=== PATIENT | male | born 1965 | race Caucasian/White ===

== ENCOUNTER 2020-04-18 09:02 | Day surgery (SDC) | payer OTHER, SELFPAY ==
[2020-04-12 14:06] VITALS: BMI 26.9
--- NOTE | 2020-04-17 08:38 | P.CONAN_ITS ---
Documented by User: Joie Amador 04/17/20 08:40 HPI - Anesthesia Eval Consult details Narrative: 54yo M for Colonoscopy [facility] Past Medical History Medical History Anxiety and depression Arthritis Back pain Elevated cholesterol History of cellulitis HTN (hypertension) Hx of heartburn Hx of sciatica Family History Family History Father No problems noted. Mother Chronic mental illness Surgical History Surgical History Hx of lumbar discectomy Social History Social History (Updated 04/18/20 @ 10:16 by Shelia Gross) Alcohol intake: former Smoking Status: Current every day smoker Cigarettes Per Day: 10 Years Smoked: 35 Smoked in Last 30 Days: Yes Use of substances other than those prescribed or required for medical reasons: No Substance Use Type: Former Substance User Advance Directives Information Provided: No Recently lost weight without trying: No Meds Allergies Allergy/AdvReac Type Severity Reaction Status Date / Time No Known Allergies Allergy Verified 04/18/20 09:24 [No Known Allergies*] Home Medications Medication Instructions Recorded Confirmed Type acetaminophen [Tylenol Extra 1,000 mg PO Q6H PRN 04/12/20 04/12/20 History Strength] famotidine [Pepcid AC] 20 mg PO DAILY PRN 04/12/20 04/12/20 History ibuprofen 400 mg PO Q6H PRN 04/12/20 04/12/20 History Exam Exam Date and Time: April 17, 2020 0838 Height,Weight and Vital Signs: Height 6 ft 5 in Weight 102.965 kg Assessment and Plan Assessment Anesthesia Assessment: Chart Reviewed Documented by User: Shelia Gross 04/18/20 10:20 [facility] Past Medical History Medical History Anxiety and depression Arthritis Back pain Elevated cholesterol History of cellulitis HTN (hypertension) Hx of heartburn Hx of sciatica Family History Family History Father No problems noted. Mother Chronic mental illness Family history of problems with anesthesia: No Surgical History Surgical History Hx of lumbar discectomy History of Problems with Anesthesia: No Social History Social History (Updated 04/18/20 @ 10:16 by Shelia Gross) Alcohol intake: former Smoking Status: Current every day smoker Cigarettes Per Day: 10 Years Smoked: 35 Smoked in Last 30 Days: Yes Use of substances other than those prescribed or required for medical reasons: No Substance Use Type: Former Substance User Advance Directives Information Provided: No Recently lost weight without trying: No Meds Allergies Allergy/AdvReac Type Severity Reaction Status Date / Time No Known Allergies Allergy Verified 04/18/20 09:24 [No Known Allergies*] Home Medications Medication Instructions Recorded Confirmed Type acetaminophen [Tylenol Extra 1,000 mg PO Q6H PRN 04/12/20 04/12/20 History Strength] famotidine [Pepcid AC] 20 mg PO DAILY PRN 04/12/20 04/12/20 History ibuprofen 400 mg PO Q6H PRN 04/12/20 04/12/20 History Exam Height,Weight and Vital Signs: Vital Signs Temp Pulse Resp BP Pulse Ox 04/18/20 09:39 96.9 F 72 18 152/100 H 98 Airway Mallampati Class: III TM Dist: >3cm Neck ROM: Full Loose/Missing/Broken Teeth: Yes (Many loose) Heart: RRR Lungs: CTAB Assessment and Plan Assessment Anesthesia Assessment: Anesthesia Plan Discussed and Chart Reviewed Final Anesthetic Review NPO: Yes ASA Class: II Final Preanesthetic Review: No Changes in Pt Med Stat, Meds/Allgs Chart Reviewed, Consent Obtained/Reviewed and Anes Risks/Benef Reviewed Patient Risk: Low Procedure Risk: Low Assessment/Block/Sedation in SS: Assess/Block/Sedation-SS Anesthetic Plan Anesthetic Plan: MAC: Disposition: Standard PACU
[2020-04-18 09:39] VITALS: BP 152/100; PULSE 72; RESP 18; TEMP 36.1; O2SAT 98
--- NOTE | 2020-04-18 10:12 | MHC.SHP ---
Pre-Procedural Eval Section A The patient is an INPATIENT: No Changes since office visit: No Cold of Flu in the past 2 weeks, No New Medical Problems, No Changes in Medication and No Patient answered all questions The History & Physical has been completed within 30 days and I have reviewed it.: Yes Section B Chief Complaint: screening Allergies: Allergies Allergy/AdvReac Type Severity Reaction Status Date / Time No Known Allergies Allergy Verified 04/18/20 09:24 [No Known Allergies*] Plan I have reviewed the history and physical and performed a pertinent physical examination on my patient. No changes have occurred unless specified.
[2020-04-18] MEDS: Lactated Ringers 1,000 ML 100 ML IVCONT (10:13)
[2020-04-18 10:47] VITALS: BP 140/93; PULSE 55; RESP 12; TEMP 36.2; O2SAT 95
--- NOTE | 2020-04-18 10:54 | PM.OP ---
Brief Operative Note Date of Service: 04/18/20 Pre-op diagnosis: screening Post-op diagnosis: same (normal exam) Procedure: colonoscopy Surgeon: Nitin Seymour Anesthesia: MAC Estimated blood loss (mL): 0 Pathology: none sent Condition: stable Disposition: PACU
[2020-04-18 11:02] VITALS: BP 140/84; PULSE 60; RESP 18; O2SAT 97
--- NOTE | 2020-04-18 11:11 | OP_ITS ---
SURGEON: Nitin Seymuor MD INDICATIONS: Colon cancer screening. PREOPERATIVE DIAGNOSIS: POSTOPERATIVE DIAGNOSIS: PROCEDURE PERFORMED: Colonoscopy to the terminal ileum. ESTIMATED BLOOD LOSS: COMPLICATIONS: ANESTHESIA: ASSISTANTS: SPECIMENS: MEDICATIONS: Monitored anesthesia care. DESCRIPTION OF PROCEDURE: History and physical performed. The risks and benefits of the procedure were explained to the patient. Informed consent was obtained. The patient was placed in the left lateral decubitus position. A digital rectal exam was performed and was found to be normal. The Olympus pediatric video colonoscope was introduced into the rectum and advanced to the cecum without difficulty. The cecum was identified by transillumination, palpation, and identification of ileocecal valve. Examination was performed and the scope was removed. He tolerated the procedure well and was taken to recovery area in stable condition. FINDINGS: The terminal ileum was normal. The visualized colonic mucosa was within normal limits without evidence of masses or ulcers. No polyps were identified. The quality of the prep was good. Retroflexed examination was normal. IMPRESSION: Normal colonoscopy. RECOMMENDATIONS: 1. Follow up as needed. 2. Repeat colonoscopy is recommended in 10 years for average risk individuals. MD JAK Campoverde/HE / [id number]
--- NOTE | 2020-04-18 12:29 | HO.POSTANES ---
Post Anesthesia Evaluation Post Anesthesia Evaluation Vital Signs: Vital Signs Temp Pulse Resp BP Pulse Ox 04/18/20 11:02 60 18 140/84 H 97 04/18/20 10:47 97.2 F 55 12 140/93 H 95 04/18/20 09:39 96.9 F 72 18 152/100 H 98 Anesthesia: Monitored Mental Status: Awake Pain Control: Satisfactory Nausea/Vomiting: None Hydration: Adequate Anesthesia-Related Issues: No Anes. Related Issues
== END 2020-04-18 11:45 | disposition home or self-care (01) ==
PROVIDERS: Visit Provider Internal Medicine Gastroenterology
PROC: 0DJD8ZZ Inspection of Lower Intestinal Tract, Via Natural or Artificial Opening Endoscopic (ICD-10-PCS; CPT 45378; principal; 2020-04-18 10:40)
DX: Z12.11 Encounter for screening for malignant neoplasm of colon (principal); I10 Essential (primary) hypertension; R12 Heartburn; Z79.899 Other long term (current) drug therapy
CPT/HCPCS: 45378

== ENCOUNTER → 2022-01-24 06:15 | Outpatient (REF) | payer OTHER, SELFPAY ==
--- NOTE | 2022-01-24 06:29 | ECG_ITS ---
Test Reason : htn Blood Pressure : / mmHG Vent. Rate : 063 BPM Atrial Rate : 063 BPM P-R Int : 160 ms QRS Dur : 094 ms QT Int : 436 ms P-R-T Axes : 061 010 050 degrees QTc Int : 446 ms Normal sinus rhythm Intra-ventricular conduction delay Otherwise normal ECG When compared with ECG of 13-SEP-2016 11:13, No significant change was found Referred By: Lima Martini Electronically Signed By:JOHNNIE KERN MD
[2022-01-24 07:49] LABS: Alanine Aminotransferase 74 U/L (0-40); Albumin Level 4.5 g/dL (3.5-5.0); Alkaline Phosphatase 81 U/L (39-117); Anion Gap 16 (12-20); Aspartate Amino Transferase 51 U/L (5-37); Bilirubin Total 0.6 mg/dL (0.0-1.0); Blood Urea Nitrogen 14 mg/dL (9-16); Calcium 9.2 mg/dL (8.4-10.2); Carbon Dioxide 25 mmol/L (22-29); Chloride 105 mmol/L (96-108); Cholesterol 189 mg/dL; Estimated Glomerular Filt Rate > 60; Glucose Fasting 105 mg/dL (60-99); HDL Cholesterol 41 mg/dL; LDL Cholesterol Calculated 130 mg/dl; Potassium 4.7 mmol/L (3.3-5.1); Sodium 141 mmol/L (135-145); Total Protein 7.3 g/dL (6.5-8.0); Triglycerides 94 mg/dL
== END ==
LOC: HO.CARD 06:15
PROVIDERS: PCP Internal Medicine; Visit Provider Internal Medicine
DX: Z00.00 Encounter for general adult medical examination without abnormal findings (principal); I10 Essential (primary) hypertension; E78.5 Hyperlipidemia, unspecified
CPT/HCPCS: 36415; 80053; 80061; 93005

== ENCOUNTER 2022-06-14 07:35 | Outpatient (REF) | payer OTHER, SELFPAY ==
--- NOTE | ~2022-06-14 | US_ITS ---
EXAMINATION: US ABDOMEN LIMITED CLINICAL INFORMATION: Umbilical hernia without obstruction or gangrene. COMPARISON: CT of the abdomen and pelvis 12/28/2011. TECHNIQUE: Real-time imaging of the midline epigastric and umbilical areas. FINDINGS: In an area indicated by the patient, there is some mild forward bulging without a hernia with separation of the rectus muscles by about 1.9 cm, consistent with diastasis recti. At the umbilicus, there is a small periumbilical hernia seen containing only fat. The gap in the fascia measures 1.6 cm. US/US abdomen limited IMPRESSION: Diastases recti with small periumbilical hernia containing only fat. Identical findings are seen on the 12/28/2011 CT scan.
== END 2022-06-14 07:36 | disposition home or self-care (01) ==
LOC: HO.US 07:35
PROVIDERS: PCP Internal Medicine; Visit Provider Internal Medicine
DX: K42.9 Umbilical hernia without obstruction or gangrene (principal)
CPT/HCPCS: 76705

== ENCOUNTER 2023-04-09 13:45 | Outpatient (AMB) | payer OTHER, SELFPAY ==
[2023-04-09 14:03] VITALS: BP 140/78; PULSE 68; RESP 17; O2SAT 97; BMI 24.5
--- NOTE | 2023-04-09 14:03 | MHC.PC.OV ---
Vital Signs 04/09/23 14:03 04/09/23 14:34 Height 6 ft 5 in Weight 206 lb 4 oz BMI 24.5 BP 140/78 H 138/70 Blood Pressure Location Lt brachial Lt brachial Position Sitting Sitting Respiration 17 Pulse 68 Pulse Source Pulse Oximeter Pulse Oximetry (%) 97 Oxygen Delivery Method Room Air Intake Visit Reasons: annual exam Intake Note: Patient is here today for a physical. Dog Hair Clipper Required: No Accompanied by: Self / Same As Patient Allergies No Known Allergies [No Known Allergies*] Allergy (Verified 04/09/23 14:17) Medication List - Last Reconciled 04/09/23 by Lima Martini MD lisinopril 10 mg PO DAILY 90 days Tobacco use date assessed: 04/09/23 Dental Screening Dental Screen Date: 04/09/23 Did you have a dental visit in the last 12 months?: Yes Did you have a dental problem in the last 6 months where you did not have access to dental care?: No Was dental information given to patient?: Patient has dentist HPI HPI Comments History of Present Illness Details This is a 57-year-old male with mild recurrent major depression that comes for his physical exam. Depression stable and he declines counseling or medications. Last colonoscopy was 2020 and was normal. No chest pain or shortness of breath. Complains of nasal congestion and cough that started about 2 weeks ago but has markedly improved. He is around sick contacts. He had someone close that had RSV. [facility] Medical History History of heroin use High cholesterol Hypertension History of cellulitis Hx of sciatica Arthritis Back pain Hx of heartburn Elevated cholesterol Anxiety and depression Surgical History Normal colonoscopy Hx of lumbar discectomy Family History Father Substance use disorder Mother Osteoporosis Social History Housing: Condominium Alcohol intake: former Comment: cane prn if sciatica acting up Patient Tobacco Use Status: Current everyday Tobacco user Tobacco use type: Cigarette Cigarettes Per Day: 10 Years Smoked: 35 e-Cigarette/Vaping Use: Never Used Second Hand Smoke Exposure: No Substance Use Type: Former Substance User service: No Current occupational status: unemployed Cognitive needs: No Hearing needs: No Vision needs: Yes Questionnaire PHQ-9 Over the last 2 weeks, how often have you been bothered by any of the following problems? 1. Little interest or pleasure in doing things: more than half the days 2. Feeling down, depressed, or hopeless: more than half the days 3. Trouble falling or staying asleep, or sleeping too much: nearly every day 4. Feeling tired or having little energy: more than half the days 5. Poor appetite or overeating: more than half the days 6. Feeling bad about yourself - or that you are a failure or have let yourself or your family down: more than half the days 7. Trouble concentrating on things, such as reading the newspaper or watching television: more than half the days 8. Moving or speaking so slowly that other people could have noticed. Or the opposite - being so fidgety or restless that you have been moving around a lot more than usual: several days 9. Thoughts that you would be better off or of hurting yourself in some way: several days Total score: 17 Depression Screening Interpretation: Positive (no suicidal thoughts) Depression Screening Follow-up: Existing condition Depression Screening Done: Yes 75790 - PHQ-9 Billing: Yes Source: Developed by Drs. Amari Paz, Kristen Mathis, Willem Friedman and colleagues, with an educational sonia from [employer]. Thrive Questionnaire Date Thrive assessed: 04/09/23 I am a: Patient What is your living situation today?: I have a steady place to live Within the past 12 months, did the food you bought not last and you didn't have the money to get more?: Never true Within the past 12 months, did you worry whether your food would run out before you got money to buy more?: Never true Do you have trouble paying for medicines?: No Do you have trouble getting transportation to medical appointments?: No Do you have trouble paying your heating and electricity bill?: No Do you have trouble taking care of your child, family member or friend?: No Do you have trouble with day-to-day activities such as bathing, preparing meals, shopping, managing finances, etc.?: No Are you currently unemployed and looking for a job?: No Are you interested in more education?: No Please select the resources that you would like help with: None Currently or been in a relationship where the following occur: no concerns reported AUDIT C Alcohol Use Questionnaire (AUDIT-C) 1. How often do you have a drink containing alcohol?: Never 3. How often do you have six or more drinks on one occasion?: Never Total Score: 0 Score Reviewed/Action Taken: No CARMEN-7 AMB Questionnaire CARMEN-7 Date CARMEN - 7 assessed: 04/09/23 Feeling nervous, anxious, or on edge: 2 = More than half the days Not being able to stop or control worryin = More than half the days Worrying too much about different things: 2 = More than half the days Trouble relaxin = More than half the days Being so restless that it is hard to sit still: 2 = More than half the days Becoming easily annoyed or irritable: 2 = More than half the days Feeling afraid as if something awful might happen: 2 = More than half the days Total CARMEN-7 score (0-4 normal; 5-9 mild; 10-14 moderate; 15-21 severe): 14 Source: Developed by Drs. Amari Paz, Kristen Mathis, Willem Friedman and colleagues, with an educational sonia from [employer]. CARMEN-7 Assessment Billing CARMEN-7 Assessment Tool: CARMEN-7 Assessment 94074 Review of Systems Const All systems reviewed & are unremarkable except as noted in HPI and below Eyes Reports no additional complaints, Denies change in vision and Denies other visual disturbances Card Denies chest pain at rest, Denies chest pain with activity, Denies edema, Denies irregular heart rhythm, Denies claudication, Denies dyspnea, Denies dyspnea on exertion, Denies orthopnea, Denies paroxysmal nocturnal dyspnea and Denies slow heart rate Resp Denies cough, Denies dyspnea and Denies dyspnea on exertion GI Denies abdominal pain, Denies change in bowel habits, Denies excessive flatus, Denies nausea and Denies vomiting Denies urinary hesitancy, Denies urinary incontinence and Denies urinary urgency Musc Denies abnormal gait, Denies atrophy, Denies deformity and Denies limited range of motion Skin/Breast Denies bleeding lesions, Denies changing lesions and Denies rash Neuro Denies abnormal gait, Denies behavioral changes, Denies confusion and Denies lack of coordination Psych Denies behavioral changes and Denies confusion Physical exam (Primary Care) Vital Signs: Last Vital Signs Pulse 68 04/09/23 14:03 Resp 17 04/09/23 14:03 BP 140/78 H 04/09/23 14:03 Pulse Ox 97 04/09/23 14:03 Oxygen Delivery Method Room Air 04/09/23 14:03 BMI result Body Mass Index 24.5 Tobacco/Smoking Status: Tobacco use Status Tobacco use date assessed 04/09/23 04/09/23 14:11 Patient Tobacco Use Status Current everyday Tobacco 04/09/23 14:04 Tobacco use type Cigarette 04/09/23 14:04 e-Cigarette/Vaping Use Never Used 04/09/23 14:04 PHQ-9: PHQ-9 Score PHQ-9: Total score 17 04/09/23 14:12 Depression Screening Interpretation: Positive (no suicidal thoughts) Depression Screening Follow-up: Existing condition Thrive Assessment: Date of Thrive Assessment Date Thrive assessed 04/09/23 04/09/23 14:11 Currently or been in a relationship where the following occur: no concerns reported Const General: No confusion Orientation/consciousness: patient oriented x3 and No confusion HENMT Head: Yes normal to inspection, Yes normocephalic and Yes atraumatic Ears: external ears normal Eyes General: appearance normal, both eyes and all related structures Eyelids: Yes eyelids normal Conjunctivae: conjunctivae normal Neck Neck: Yes normal visual inspection and Yes supple Resp Effort & Inspection: normal respiratory effort Auscultation: clear to auscultation bilaterally Cardio Jugular venous distension: no JVD Rate: regular rate Rhythm: regular rhythm Heart sounds: S1 normal heart sound present and S2 normal heart sound present GI Inspection: Yes normal to inspection Palpation (GI): Soft to palpation and nontender Auscultation: normal bowel sounds Skin General skin exam: no rashes or lesions noted Neuro General: patient oriented x3, no focal motor deficits and No confusion Extrem General: Yes full ROM Psych Appearance: grossly normal Assessment and Plan Assessment & Plan (1) Physical exam: Code(s): Z00.00 - Encounter for general adult medical examination without abnormal findings Plan: Repeat in a year. (2) Mild recurrent major depression: Comment: Declines counseling and/or medication Code(s): F33.0 - Major depressive disorder, recurrent, mild Plan: Stable without medications or counseling. No suicidal thoughts. Orders: Orders Comprehensive [place]. Panel Fast Today Z00.00 - Encounter for general adult medical examination without abnormal findings SARS-CoV2/FLU/RSV Today R09.89 - Other specified symptoms and signs involving the circulatory and respiratory systems Lipid Panel Today Z00.00 - Encounter for general adult medical examination without abnormal findings Medications: Refilled lisinopril 10 mg PO DAILY 90 days 90 tabs 1RF I10 - Essential (primary) hypertension Coding Level of Care Code Est Pt Prev Care 40-64y(00366) Diagnoses Physical exam Z00.00 Mild recurrent major depression F33.0 Additional Codes CARMEN-7 Assessment Billing - CARMEN-7 Assessment Tool: CARMEN-7 Assessment 32169 ([id number]) Time Spent (min) 32
[2023-04-09 14:34] VITALS: BP 138/70
== END 2023-04-09 14:30 | disposition home or self-care (01) ==
PROVIDERS: PCP Internal Medicine; Visit Provider Internal Medicine
DX: Z00.00 Encounter for general adult medical examination without abnormal findings (principal); F33.0 Major depressive disorder, recurrent, mild; I10 Essential (primary) hypertension
CPT/HCPCS: 99396

== ENCOUNTER 2023-04-09 14:37 | Outpatient (REF) | payer OTHER, SELFPAY ==
[2023-04-09 15:52] LABS: Influenza A PCR NEGATIVE (Negative); Influenza B PCR NEGATIVE (Negative); Resp Syncy Virus RNA Qual PCR NEGATIVE (Negative); SARS COV2 PCR INHOUSE NEGATIVE (Negative)
== END 2023-04-09 14:38 | disposition home or self-care (01) ==
LOC: HO.LAB 14:37
PROVIDERS: PCP Internal Medicine; Visit Provider Internal Medicine
DX: R09.89 Other specified symptoms and signs involving the circulatory and respiratory systems (principal); Z11.52 Encounter for screening for COVID-19
CPT/HCPCS: 0241U

== ENCOUNTER 2024-02-10 09:46 | Outpatient (AMB) | payer OTHER, SELFPAY ==
--- NOTE | 2024-02-10 10:10 | A.OFFVISCC_ITS ---
Intake Visit Reasons: Intake Allergies No Known Allergies [No Known Allergies*] Allergy (Verified 04/09/23 14:17) HPI HPI Intake: Details: Patient presents for evaluation and treatment of OUD Currently using 10-15 bags of heroin/fentanyl IV daily Opiate use started after back surgery with prescription of percocets when he was early 40's 43 years old switched to heroin denies any history of overdose history of ATS treatment X1 Previously on suboxone, but stopped after several episodes of precipitated withdrawal Had been prescribed medication for 2 years History of methadone (brief per his report) Denies alcohol or cocaine use Medical: Dr. Díaz PCP Denies history of HIV/Hep C. Denies medical admissions does report history of cellulitis related to IVDU Social: unstably housed works 2 transportation department head jobs minimal supports related to substance use Lengthy discussion regarding initiation of buprenorphine given fentanyl and other adulterants in the drug supply discussed strategies for induction strategies for managing withdrawal Review of Systems Const Reports as per HPI Physical Exam Const General: cooperative, healthy appearing, anxious and well groomed Nutritional Appearance: thin Orientation/consciousness: patient oriented x3 Limitations: no limitations Neuro General: patient oriented x3 Psych Appearance: well kempt Speech and movement: Clear speech present Affect: Anxious affect present Attitude: cooperative Thought process: Normal thought process present Thought content: Normal thought content present Insight: Fair insight present (Psych) Judgement: Fair judgement present (Psych) Assessment & Plan Assessment & Plan (1) Opioid use disorder, severe, dependence: Code(s): F11.20 - Opioid dependence, uncomplicated Category: Medical Plan: * decided on macro dose induction. Reviewed hand out, reinforced importance of waiting as long as possible following last opiate use * Due to work schedule, unable to start until Friday evening/early Friday morning * goal of suboxone 8mg TID * comfort medications ordered * overdose prevention discussion * follow up Friday with RN * will need labs completed Orders: Orders AMB 14 Panel Urine Drug Screen 02/10/24 Z51.81 - Encounter for therapeutic drug level monitoring Medications: New buprenorphine-naloxone 8-2 mg (Suboxone) 1 film sublingual TID 22 ea 0RF tizanidine 4 mg PO Q8H PRN 30 caps 0RF muscle spasticity hydroxyzine HCl 50 mg PO TID PRN 30 tabs 0RF anxiety Discontinued cyclobenzaprine Discontinued Reason: Doctor's Order 7.5 mg PO TID PRN 20 tabs 0RF muscle spasm PFSH Medical History History of heroin use High cholesterol Hypertension History of cellulitis Hx of sciatica Arthritis Back pain Hx of heartburn Elevated cholesterol Anxiety and depression Surgical History Normal colonoscopy Hx of lumbar discectomy Family History Father Substance use disorder Mother Osteoporosis Social History Housing: Condominium Alcohol intake: former Comment: cane prn if sciatica acting up Patient Tobacco Use Status: Current everyday Tobacco user Tobacco use type: Cigarette Cigarettes Per Day: 10 Years Smoked: 35 e-Cigarette/Vaping Use: Never Used Second Hand Smoke Exposure: No Substance Use Type: Former Substance User service: No Current occupational status: unemployed Cognitive needs: No Hearing needs: No Vision needs: Yes
== END 2024-02-10 11:14 | disposition home or self-care (01) ==
PROVIDERS: PCP Internal Medicine; Visit Provider Nurse Practitioner Psychiatric/Mental Health
DX: F11.20 Opioid dependence, uncomplicated (principal)
CPT/HCPCS: 99204

== ENCOUNTER → 2024-02-10 09:46 | Outpatient (BNVA) | payer OTHER, SELFPAY | PROVIDERS: PCP Internal Medicine; Visit Provider Nurse Practitioner Psychiatric/Mental Health | DX: F11.20 Opioid dependence, uncomplicated (principal); Z51.81 Encounter for therapeutic drug level monitoring | CPT/HCPCS: 99202 ==

== ENCOUNTER → 2024-02-16 09:40 | Outpatient (BNVA) | payer OTHER, SELFPAY | PROVIDERS: PCP Internal Medicine ==

== ENCOUNTER 2024-02-19 09:34 | Outpatient (AMB) | payer OTHER, SELFPAY ==
--- NOTE | 2024-02-19 09:38 | AM.OFFVISNUR ---
Intake Visit Reasons: flu shot Allergies No Known Allergies [No Known Allergies*] Allergy (Verified 04/09/23 14:17) Office Procedures Flu Questionnaire Does the patient have a severe egg allergy?: No Does the patient have severe life threatening allergies?: No Does the patient have a fever or illness today?: No Has the patient ever had Guillain-Maple Syndrome?: No Has the patient ever had any past reaction to a flu shot?: No Assessment & Plan Assessment & Plan Orders: Orders Influenza [id number] Immunization Today Z23 - Encounter for immunization Medications: New Fluarix Triv [id number] (PF) (flu vacc [id number] 6mos up(PF)) 0.5 mL IM ONCE 0.5 mL 0RF NS Z23 - Encounter for immunization
--- OUTSIDE RECORDS SUMMARY | 2024-02-20 14:37 | XMS_ITS | Patient Health Record ---
Author Organization [facility] Address [address] [place] [address] Care Team Providers Care Gearman Name Role Phone Amira Erickson N.P. Primary Care Provider Unavail able Lion Johnston Nitin Unavailable REASON FOR REFERRAL No Information MEDICATIONS Medication SIG (Take, Route, Frequency, Duration) Notes Start Date End Date Status MiraLax (colon prep) 8.3 ounce ((238) grams mixed with Gatorade or Crystal Light orally begin at 5:00 p.m. the day before the procedure for 1 day 04/03/2020 Active Advil PRN Active Tylenol PRN Active Ibuprofen PRN Active IMMUNIZATIONS Vaccine Route Administration Date Status Comme nts Influenza Unknown 04/03/2020 Refused SOCIAL HISTORY Tobacco Use: Social History Observation Description Date Details (start date - stop date) Current Smoker NA - NA Sex Assigned At : Social History Observation Description Sex Assigned At Unknown Tobacco Use/Smoking Question Answer Notes Patient is a current smoker When did you start smoking? 12 years old How often do you smoke cigarettes? every day How many cigarettes a day do you smoke? 11-20 How soon after you wake up d o you smoke your first cigarette? within 5 minutes Are you interested in quitting? Thinking about q uitting Alcohol Screen Question Answer Notes Did you have a drink containing alcohol in the p ast year? No Points 0 Interpretation Negative PROBLEMS Problem Type ICD Code Onset Dates Problem Status W/U Status Risk SNOMED Code Notes Problem Colon cancer screening (Z12.11) Active confirmed 468380225 Problem residential (current) use of non-steroidal anti-inflammatorie s (NSAID) (Z79.1) Active confirmed 807814825 Problem Encounter for other preprocedural examination (Z01.818) Active confirmed [id number] PLAN OF TREATMENT Future Test Test Name Order Date COLONOSCOPY 04/03/2020 Insurance Providers Payer Name Payer Address Payer Phone Subscriber Number Group Number Insured Name Patient Relationship to Insured Coverage Start Date Coverage End Date [facility] [address] [address] [place], [place] [id number] MARIA ESTHER ABBOTT Self - patient is the insured MEDICAL (GENERAL) HISTORY Medical History History ICD Code hx of mild hypertension anxiety depression lower back pain Surgical History Surgery Date(Month/Year) back surgery - replacement L5 2005
== END 2024-02-19 09:40 | disposition home or self-care (01) ==
LOC: HO.HMCH 09:34
PROVIDERS: PCP Internal Medicine; Visit Provider Internal Medicine
DX: Z23 Encounter for immunization (principal)

== ENCOUNTER → 2024-02-19 09:34 | Outpatient (BNVA) | payer OTHER, SELFPAY | PROVIDERS: PCP Internal Medicine; Visit Provider Internal Medicine | DX: Z23 Encounter for immunization (principal) | CPT/HCPCS: 90471; 90656 ==

== ENCOUNTER 2024-04-15 07:09 | Outpatient (AMB) | payer OTHER, SELFPAY ==
[2024-04-15 07:37] VITALS: BP 130/86; BMI 27.8
--- NOTE | 2024-04-15 07:37 | A.OFFPC_ITS ---
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 Accompanied by: Self / Same As Patient Allergies No Known Allergies [No Known Allergies*] Allergy (Verified 04/15/24 07:48) Medication List - Last Reconciled 04/15/24 by Lima Martini MD lisinopril 10 mg PO DAILY 90 days methadone 40 mg PO DAILY Tobacco use date assessed: 04/15/24 Dental Screening Dental Screen Date: 04/15/24 Did you have a dental visit in the last 12 months?: No Did you have a dental problem in the last 6 months where you did not have access to dental care?: No Was dental information given to patient?: Patient has dentist HPI HPI Comments History of Present Illness Details The patient is a 58-year-old male presenting for his physical exam. He has opioid use disorder and depression. The opioid use began following a back surgery in his 40s, initially with prescribed pain medication which progressed to street heroin use, primarily via IV. The patient is in a methadone maintenance program, following at a [facility]. He has taken methadone to manage his opioid use disorder, currently maintained on 40 mg, and expressed apprehension about increasing the dosage. He has been clean from heroin except for a lapse a few days ago and tries to abstain from shared needle use, identifying as a solitary user. His depression is significant, with a PHQ-9 score of 23, but he avoids medication, choosing occasional marijuana use as a coping mechanism. He reports frequent changes in therapists, impacting his mental health care. He denies suicidal ideation or psychosis but experiences pronounced anxiety. Regarding bowel movements, the patient reports infrequent, pellet-like stools for the past few weeks, potentially related to methadone use. He also notes a loss of appetite recently, leading to reduced food intake. [facility] Medical History (Updated 04/15/24 @ 08:58 by Lima Martini MD) Mild recurrent major depression History of heroin use High cholesterol Hypertension History of cellulitis Hx of sciatica Arthritis Back pain Hx of heartburn Elevated cholesterol Anxiety and depression Surgical History Normal colonoscopy Hx of lumbar discectomy Family History Father Substance use disorder Mother Osteoporosis Social History Housing: Condominium Alcohol intake: former Comment: cane prn if sciatica acting up Patient Tobacco Use Status: Current everyday Tobacco user Tobacco use type: Cigarette Cigarettes Per Day: 10 Years Smoked: 35 e-Cigarette/Vaping Use: Never Used Second Hand Smoke Exposure: No Substance Use Type: Former Substance User service: No Current occupational status: unemployed Cognitive needs: No Hearing needs: No Vision needs: Yes Questionnaire PHQ-9 Over the last 2 weeks, how often have you been bothered by any of the following problems? 1. Little interest or pleasure in doing things: nearly every day 2. Feeling down, depressed, or hopeless: nearly every day 3. Trouble falling or staying asleep, or sleeping too much: nearly every day 4. Feeling tired or having little energy: nearly every day 5. Poor appetite or overeating: nearly every day 6. Feeling bad about yourself - or that you are a failure or have let yourself or your family down: more than half the days 7. Trouble concentrating on things, such as reading the newspaper or watching television: nearly every day 8. Moving or speaking so slowly that other people could have noticed. Or the opposite - being so fidgety or restless that you have been moving around a lot more than usual: nearly every day 9. Thoughts that you would be better off or of hurting yourself in some way: not at all Total score: 23 Depression Screening Interpretation: Positive (no suicidal thoughts) Depression Screening Follow-up: Existing condition, Follow-up Visit Requested and Declines treatment Depression Screening Done: Yes 59430 - PHQ-9 Billing: Yes Source: Developed by Drs. Amari Paz, Kristen Mathis, Willem Friedman and colleagues, with an educational sonia from [employer]. Thrive Questionnaire Date Thrive assessed: 04/15/24 I am a: Patient What is your living situation today?: I do not have a steady places to live I am temporarily staying with others Within the past 12 months, did the food you bought not last and you didn't have the money to get more?: Sometimes True Within the past 12 months, did you worry whether your food would run out before you got money to buy more?: Sometimes True Do you have trouble paying for medicines?: No Do you have trouble getting transportation to medical appointments?: No Do you have trouble paying your heating and electricity bill?: No Do you have trouble taking care of your child, family member or friend?: Yes Do you have trouble with day-to-day activities such as bathing, preparing meals, shopping, managing finances, etc.?: Yes Are you currently unemployed and looking for a job?: No Are you interested in more education?: No Please select the resources that you would like help with: None Currently or been in a relationship where the following occur: No concerns reported THRIVE Score: 3 AUDIT C Alcohol Use Questionnaire (AUDIT-C) 1. How often do you have a drink containing alcohol?: Never Total Score: 0 Score Reviewed/Action Taken: No CARMEN-7 AMB Questionnaire CARMEN-7 Date CARMEN - 7 assessed: 04/15/24 Feeling nervous, anxious, or on edge: 1 = Several days Not being able to stop or control worryin = Not at all Worrying too much about different things: 2 = More than half the days Trouble relaxin = Several days Being so restless that it is hard to sit still: 0 = Not at all Becoming easily annoyed or irritable: 1 = Several days Feeling afraid as if something awful might happen: 1 = Several days Total CARMEN-7 score (0-4 normal; 5-9 mild; 10-14 moderate; 15-21 severe): 6 Source: Developed by Drs. Amari Paz, Kristen Mathis, Willem Friedman and colleagues, with an educational sonia from [employer]. CARMEN-7 Assessment Billing CARMEN-7 Assessment Tool: CARMEN-7 Assessment 10275 Review of Systems Const All systems reviewed & are unremarkable except as noted in HPI and below Card Denies chest pain at rest, Denies chest pain with activity, Denies edema, Denies irregular heart rhythm, Denies claudication, Denies dyspnea, Denies dyspnea on exertion, Denies orthopnea, Denies paroxysmal nocturnal dyspnea and Denies slow heart rate Resp Denies cough, Denies dyspnea and Denies dyspnea on exertion GI Reports constipation Neuro Denies lack of coordination Psych Reports anxiety and Reports depression Physical exam (Primary Care) Vital Signs: Last Vital Signs BP 130/86 04/15/24 07:37 BMI result Body Mass Index 27.8 Tobacco/Smoking Status: Tobacco use Status Tobacco use date assessed 04/15/24 04/15/24 07:42 Patient Tobacco Use Status Current everyday Tobacco 04/15/24 07:42 Tobacco use type Cigarette 04/15/24 07:42 e-Cigarette/Vaping Use Never Used 04/15/24 07:42 Are you ready to quit: No Tobacco cessation counseling provided: Yes Items discussed: Nicotine replacement and QuitWorks Relapse Prevention: discussed the importance of a supportive environment, discussed extending NRT, discussed negative mood or depression after quitting, weight gain after smoking is common and discussed dietary, exercise and/or lifestyle changes Number of minutes spent counselin CPT code: 14518 - 4-10 Minutes PHQ-9: PHQ-9 Score PHQ-9: Total score 23 04/15/24 07:57 Depression Screening Interpretation: Positive (no suicidal thoughts) Depression Screening Follow-up: Existing condition, Follow-up Visit Requested and Declines treatment Thrive Assessment: Date of Thrive Assessment Date Thrive assessed 04/15/24 04/15/24 07:42 Currently or been in a relationship where the following occur: No concerns reported HENME Head: Yes normal to inspection, Yes normocephalic and Yes atraumatic Ears: external ears normal Eyes General: appearance normal, both eyes and all related structures Eyelids: Yes eyelids normal Conjunctivae: conjunctivae normal Neck Neck: Yes normal visual inspection and Yes supple Resp Effort & Inspection: normal respiratory effort Auscultation: clear to auscultation bilaterally Cardio Jugular venous distension: no JVD Rate: regular rate Rhythm: regular rhythm Heart sounds: S1 normal heart sound present and S2 normal heart sound present GI Inspection: Yes normal to inspection Palpation (GI): Soft to palpation and nontender Auscultation: normal bowel sounds Skin General skin exam: no rashes or lesions noted Neuro General: no focal motor deficits Extrem General: Yes full ROM Psych Appearance: grossly normal Immunizations Boostrix Tdap 2.5 Lf unit-8 mcg-5 Lf/0.5 mL intramuscular syringe Performing Provider: Lima Martini MD Performing Location: [facility] Administered by: PATY Jimenez on 04/15/24 08:16 Dose Route Admin Location Dispensed Lot Number Expiration Date NDC Internal Security Manager 0.5 mL IM Right Deltoid 0.5 mL [id number] 04/24/26 [id number] PharmMD VIS Given Date VIS Provided VIS Publication Date 04/15/24 Single Vaccine 20 Eligibility Eligibility Date Funding Source Not [facility] Eligible 04/15/24 Private Coding Level of Care Code Est Pt Level 3 (61827) Est Pt Prev Care 40-64y(63964) Diagnoses Physical exam Z00.00 Opioid use disorder, severe, dependence F11.20 Severe recurrent major depression without psychotic features F33.2 Opioid-induced constipation K59.03; T40.2X5A Additional Codes PHQ-9 - 42716 - PHQ-9 Billing: Yes ([id number]) CARMEN-7 Assessment Billing - CARMEN-7 Assessment Tool: CARMEN-7 Assessment 95594 ([id number]) Vital Signs *Quality* - CPT code: 27769 - 4-10 Minutes ([id number]) Time Spent (min) 35 Assessment & Plan Assessment & Plan (1) Physical exam: Code(s): Z00.00 - Encounter for general adult medical examination without abnormal findings Category: Medical (2) Opioid use disorder, severe, dependence: Code(s): F11.20 - Opioid dependence, uncomplicated Category: Medical (3) Severe recurrent major depression without psychotic features: Code(s): F33.2 - Major depressive disorder, recurrent severe without psychotic features Category: Medical (4) Opioid-induced constipation: Code(s): K59.03 - Drug induced constipation; T40.2X5A - Adverse effect of other opioids, initial encounter Category: Medical Plan - Encourage continuation of methadone treatment; adjust dosage as needed to manage opioid use disorder. - Discuss potential therapy alignment for depression management; marijuana use acknowledged but not recommended as primary treatment. - Suggest constipation management options, likely exacerbated by opioid use. - Support smoking cessation using available patches; monitor progress if contact is needed. - Complete routine blood work to assess current health status. Patient was informed and verbally consented to the use of an ambient scribe for clinic note documentation during this visit. I discussed the importance of maintaining regular methadone dosing to manage opioid addiction effectively. We reviewed the risks and benefits of dosage adjustments versus maintaining the current dose. Potential management changes for depression were explored, emphasizing the importance of consistent mental health support and the limitations of using marijuana as a sole treatment option. I advised on the health implications of marijuana and smoking while encouraging efforts to quit smoking. We covered the necessity and schedule of upcoming blood work and vaccinations required. I advised the patient to consider routine follow-ups to monitor both mental and physical health outcomes. Orders: Orders Lipid Panel Today Z00.00 - Encounter for general adult medical examination without abnormal findings Comprehensive [place]. Panel Fast Today Z00.00 - Encounter for general adult medical examination without abnormal findings Medications: New 2 docusate calcium 240 mg PO BEDTIME 90 days PRN 90 caps 0RF constipation K59.03 - Drug induced constipation, T40.2X5A - Adverse effect of other opioids, initial encounter Patient Instructions: - Please maintain the current methadone dosage unless changes are advised. - Use nicotine patches to help reduce cigarette smoking if you decide to quit. - Focus on maintaining a regular diet despite current appetite changes. - Complete recommended blood work and obtain the Tdap vaccine as scheduled. - Contact the clinic if bowel irregularities persist or worsen.
== END 2024-04-15 08:13 | disposition home or self-care (01) ==
PROVIDERS: PCP Internal Medicine; Visit Provider Internal Medicine
DX: Z00.00 Encounter for general adult medical examination without abnormal findings (principal); F11.20 Opioid dependence, uncomplicated; F33.2 Major depressive disorder, recurrent severe without psychotic features; K59.03 Drug induced constipation; T40.2X5A Adverse effect of other opioids, initial encounter; Z23 Encounter for immunization

== ENCOUNTER → 2024-04-15 07:09 | Outpatient (BNVA) | payer OTHER, SELFPAY | PROVIDERS: PCP Internal Medicine; Visit Provider Internal Medicine | DX: Z00.00 Encounter for general adult medical examination without abnormal findings (principal); Z23 Encounter for immunization; F11.20 Opioid dependence, uncomplicated; F33.2 Major depressive disorder, recurrent severe without psychotic features; K59.03 Drug induced constipation; T40.2X5A Adverse effect of other opioids, initial encounter | CPT/HCPCS: 90471; 90715; 96127; 99212; 99396 ==